=== PATIENT | male | born 1955 | race Caucasian/White ===

== ENCOUNTER 2022-09-08 11:38 | Emergency (ER) | payer MEDICARE, BC ==
[~2022-09-08] VITALS: Ht 180.3 cm; Wt 87.3 kg
[2022-09-08 11:45] VITALS: TEMP 96.8
[2022-09-08] MEDS ORDERED: ROBAXIN 50500 MG/TAB PO (12:38)
[2022-09-08] MEDS ORDERED: INDOCIN 25MG CA25 MG PO (12:38)
[2022-09-08 12:54] VITALS: BP 150/91; PULSE 72
== END 2022-09-08 12:54 | disposition home or self-care (01) ==
LOC: COL.ER 11:38
DX: M54.17 Radiculopathy, lumbosacral region (principal)